=== PATIENT | female | born 2000 | race Caucasian/White ===

== ENCOUNTER → 2020-04-28 | Outpatient (CLI) | payer BC, SELFPAY | END | disposition home or self-care (01) | LOC: LABSPEC 15:10 | PROVIDERS: Referring Provider Dermatology; Visit Provider Dermatology | DX: L72.8 Other follicular cysts of the skin and subcutaneous tissue (principal) | CPT/HCPCS: 87070; 87205 ==

== ENCOUNTER → 2020-06-17 | Outpatient (CLI) | payer BC, SELFPAY | END | disposition home or self-care (01) | LOC: LABSPEC 11:04 | PROVIDERS: Visit Provider Dermatology | DX: K04.6 Periapical abscess with sinus (principal) | CPT/HCPCS: 87070; 87205 ==